=== PATIENT | male | born 1940 | race Caucasian/White ===

== ENCOUNTER 2017-01-23 12:28 | Emergency (ER) | payer MEDICARE, BC ==
[~2017-01-23] VITALS: Ht 170.2 cm; Wt 124.7 kg
--- NOTE | ~2017-01-23 | US85 ---
[facility] Service of [facility] RADIOLOGY TEXT RESULTS PATIENT: ALESSANDRA VALENZUELA LOCATION: [facility] : 42 UNIT #: [id number] AGE: [address]: Nieves Carter MD SEX: M ORDER DR: [id number] [facility]. [place], [place] [address] [id number] E MR#: [id number] Acc #: [id number] NAME: ALESSANDRA VALENZUELA. : 1940 SEX: M STUDY DATE/TIME: 01/23/2017 14:35 UNIT: MIKE ROOM: STUDY DESCRIPTION: [employer]IM[employer] Attending Physician: Nieves Carter M.D. Ordering Physician: Nieves Carter M.D. Primary Care Physician: Riki Bedoya M.D. MEDICAL IMAGING REPORT This report is preliminary unless electronic signature is present EXAM Left lower extremity venous ultrasound HISTORY Left lower extremity pain and swelling for a week. Patient fell getting out of a truck. COMPARISON 02/24/2012 TECHNIQUE Venous ultrasound examination of the left lower extremity was performed using grayscale, spectral Doppler and color flow Doppler imaging. FINDINGS The examination is negative. There is no evidence of left lower extremity deep venous thrombus from the groin to the lower calf. Visualized greater saphenous vein is also patent. IMPRESSION Negative examination. No evidence of left lower extremity deep venous thrombosis. Dictated by... Shree Ham M.D. THIS IS AN ELECTRONICALLY VERIFIED REPORT Shree Ham M.D. at 01/24/2017 6:04 AM FEL/psc TD: 01/23/2017 22:50 [facility] RADIOLOGY TEXT RESULTS PATIENT: ALESSANDRA VALENZUELA LOCATION: [facility] : 42 UNIT #: [id number] AGE: [address]: Nieves Carter MD SEX: M ORDER DR: JOB #: [id number] MEDICAL IMAGING REPORT Page 1 of 1 COPY
--- NOTE | ~2017-01-23 | CR20 ---
[facility] A Service of [facility] RADIOLOGY TEXT RESULTS PATIENT: ALESSANDRA VALENZUELA LOCATION: [facility] : 42 UNIT #: [id number] AGE: [address]: Nieves Carter MD SEX: M ORDER DR: [id number] [id number] [facility]. [place], [place] [address] [id number] E MR#: [id number] Acc #: [id number] NAME: ALESSANDRA VALENZUELA. : 1940 SEX: M STUDY DATE/TIME: 01/23/2017 13:47 UNIT: MIKE ROOM: STUDY DESCRIPTION: CR Ankle Min 3 Views Lt Attending Physician: Nieves Carter M.D. Ordering Physician: Nieves Carter M.D. Primary Care Physician: Riki Bedoya M.D. MEDICAL IMAGING REPORT This report is preliminary unless electronic signature is present EXAM Left ankle, 3 views, 01/23/2017, 1347 hours. CLINICAL HISTORY Patient fell 6 days ago with persistent pain from left knee through ankle since fall. COMPARISON None. FINDINGS AP, lateral, and oblique views of the left ankle demonstrate diffuse subcutaneous edema over the visualized portions of the lower leg and ankle. There is no ankle fracture or dislocation. There is spurring at the calcaneus at both the Achilles insertion and the plantar surface. IMPRESSION Diffuse lower extremity edema extending inferiorly over the ankle. No ankle fracture or dislocation. Dictated by... Anne Esquivel M.D. THIS IS AN ELECTRONICALLY VERIFIED REPORT Anne Esquivel M.D. at 01/24/2017 9:25 AM ARMINDA/reji TD: 01/23/2017 21:07 JOB #: [id number] MEDICAL IMAGING REPORT [facility] A Service [facility] RADIOLOGY TEXT RESULTS PATIENT: ALESSANDRA VALENZUELA LOCATION: [facility] : 42 UNIT #: [id number] AGE: [address]: Nieves Carter MD SEX: M ORDER DR: Page 1 of 1 COPY
--- NOTE | ~2017-01-23 | CR169 ---
[facility] A Service of [facility] RADIOLOGY TEXT RESULTS PATIENT: ALESSANDRA VALENZUELA LOCATION: [facility] : 42 UNIT #: [id number] AGE: [address]: Nieves Carter MD SEX: M ORDER DR: [id number] [facility] [address] [place], [place] [address] [id number] E MR#: [id number] Acc #: [id number] NAME: ALESSANDRA VALENZUELA. : 1940 SEX: M STUDY DATE/TIME: 01/23/2017 1348 UNIT: [facility] ROOM: STUDY DESCRIPTION: CR Knee 2 Views Lt Attending Physician: Nieves Carter M.D. Ordering Physician: Nieves Carter M.D. Primary Care Physician: Riki Bedoya M.D. MEDICAL IMAGING REPORT This report is preliminary unless electronic signature is present EXAM Left knee, 2 views, 01/23/2017, 1348 hours. CLINICAL HISTORY Patient fell 6 days ago with pain from the knee through the ankle. Swelling. COMPARISON 07/31/2013 FINDINGS AP and lateral views of the knee demonstrate trace fluid in the suprapatellar bursa but no lipohemarthrosis. There is diffuse subcutaneous edema seen over the distal thigh through the calf. There is spurring in the patellofemoral compartment, medial compartment greater than lateral compartment, with mild chondrocalcinosis. AP view suggests the presence of a loose body near the lateral tibial spine. The degenerative changes are similar to 07/31/2013. IMPRESSION 1. Diffuse subcutaneous edema over the distal thigh and lower leg. 2. Trace suprapatellar bursa effusion similar to 07/31/2013. There is no lipohemarthrosis or fracture. 3. Degenerative spurring and joint space loss, greatest in the medial and patellofemoral compartment. 4. AP views suggest the presence of a loose body adjacent to the lateral tibial spine. Dictated by... Anne Esquivel M.D. [facility] A Service of [facility] RADIOLOGY TEXT RESULTS PATIENT: ALESSANDRA VALENZUELA [id number] 44 UNIT #: [id number] AGE: [address]: Nieves Carter MD SEX: M ORDER DR: THIS IS AN ELECTRONICALLY VERIFIED REPORT Anne Esquivel M.D. at 01/24/2017 9:25 AM ARMINDA/reji TD: 01/23/2017 21:12 JOB #: [id number] MEDICAL IMAGING REPORT Page 1 of 1 COPY
--- NOTE | ~2017-01-23 | CR252 ---
[facility] A Service of [facility] RADIOLOGY TEXT RESULTS PATIENT: ALESSANDRA VALENZUELA LOCATION: [facility] : 42 UNIT #: [id number] AGE: [address]: Nieves Carter MD SEX: M ORDER DR: [id number] [facility] [address] [facility]. [place], [place] [address] [id number] E MR#: [id number] Acc #: [id number] NAME: ALESSANDRA VALENZUELA : 1940 SEX: M STUDY DATE/TIME: 01/23/2017 13:48 UNIT: [facility] ROOM: STUDY DESCRIPTION: CR Tibia and Fibula 2 Views Lt Attending Physician: Nieves Carter M.D. Ordering Physician: Nieves Carter M.D. Primary Care Physician: Riki Bedoya M.D. MEDICAL IMAGING REPORT This report is preliminary unless electronic signature is present EXAM Left tibia and fibula, 01/23/2017 1348 hours HISTORY AP and lateral views of the tibia and fibula demonstrate diffuse subcutaneous edema extending from the level of the knee to the ankle. The tibia and fibula are intact. No fracture is seen. IMPRESSION Diffuse subcutaneous edema from the knee to the ankle. No fracture of the tibia or fibula seen. Dictated by... Anne Esquivel M.D. THIS IS AN ELECTRONICALLY VERIFIED REPORT Anne Esquivel M.D. at 01/24/2017 9:25 AM ARMINDA/pushpa TD: 01/23/2017 21:12 JOB #: [id number] MEDICAL IMAGING REPORT Page 1 of 1 COPY
[~2017-01-23 12:28] MED LIST: ACETAMINOPHEN PO; ANTIVERT; ATORVASTATIN CA80 MG PO; BACTRIM DS TABL1 TA1; BENICAR HCT PO; BENICAR PO; BENZONATATE PO; BISACODYL EC5 MG PO; CLEOCIN PO; COLACE PO; COMBIVENT INH14.7 GM IH; COMBIVENT INH14.7 GM INH; COUMADIN PO; COUMADIN10 MG PO; DAKIN'S MODIF1000 ML; DICLOFENAC PO; DIOVAN PO; DOXYCYCLINE HY100 M1 PO; ENOXAPARIN30 MG/0.3 SUBQ; FLONASE16 GM; HCTZ PO; LASIX PO; LEVAQUIN PO; LEVAQUIN750 MG PO; LIPITOR PO; LORTAB 5/500 TA1 TA1 PO; LOTREL 10/20 MG1 CAP PO; LOVENOX SUBQ; NORVASC PO; PREDNISONE PO; PREDNISONE10 MG PO; SENNA PO; SYMBICORT INH; SYMBICORT80 INH; TUSSIONEX PENN473 ML PO; VIBRAMYCIN100 M1 PO; VICODIN 5/1 TAB 5/50 PO; WARFARIN SODIUM10 M1 PO; ZITHROMAX PO
[2017-01-23 13:58] LABS: BASOPHIL# 0.1 X10e3 (0-0.3); BASOPHIL% 0.7 % (0-2.5); EOSINOPHIL# 0.4 X10e3 (0-0.7); EOSINOPHIL% 5.2 % (0.0-7.0); HEMATOCRIT 37.5 % (38.0-50.0); HEMOGLOBIN 12.4 gm/dL (13.0-16.0); LYMPHOCYTE# 1.4 X10e3 (1.0-3.5); LYMPHOCYTE% 18.9 % (17.0-45.0); MEAN CELL VOLUME 88.6 FL (83-96); MEAN CORPUSCULAR HEMOGLOBIN 29.2 PG (28-34); MEAN CORPUSCULAR HGB CONC 32.9 g/dL (30-36); MEAN PLATELET VOLUME 7.6 FL (6.5-11.5); MONOCYTE# 0.8 X10e3 (0-1.0); MONOCYTE% 11.7 % (3.0-12.0); NEUTROPHIL# 4.6 X10e3 (1.5-7.1); NEUTROPHIL% 63.5 % (40-75); PLATELET COUNT 181 X10e3 (140-420); RED BLOOD COUNT 4.24 X10e (3.90-5.60); RED CELL DISTRIBUTION WIDTH 14.8 % (11.0-15.5); WHITE BLOOD COUNT 7.3 X10e3 (4.0-10.5)
[2017-01-23 14:02] LABS: DIFF IND NO
[2017-01-23 14:08] LABS: INR 3.8; PARTIAL THROMBOPLASTIN TIME 57.4 SECONDS (23.5-31.3); PROTHROMBIN TIME (PATIENT) 41.7 SECONDS (10.0-11.7)
[2017-01-23 15:16] LABS: BUN/CREATININE RATIO 19.23; CALCIUM SERUM 8.4 mg/dL (8.4-10.2); CREATININE SERUM 1.3 mg/dL (0.6-1.4); GLOM FILT RATE Estimated 53.8 mL/min (>60); POTASSIUM 4.7 mmol/L (3.5-5.1)
== END 2017-01-23 15:35 | disposition home or self-care (01) ==
LOC: CED 12:28
PROVIDERS: Student in an Organized Health Care Education/Training Program
DX: S80.12XA Contusion of left lower leg, initial encounter (principal); I10 Essential (primary) hypertension; Z79.01 Long term (current) use of anticoagulants; Z88.0 Allergy status to penicillin; Z88.2 Allergy status to sulfonamides
CPT/HCPCS: 29530; 36415; 73560; 73590; 73610; 80048; 85025; 85610; 85730; 93971; 99284